=== PATIENT | female | born 1935 | race Caucasian/White ===

== ENCOUNTER 2017-06-28 14:34 | Inpatient (IN) | payer OTHER, MEDICAID ==
[~2017-06-28] VITALS: Ht 160 cm; Wt 73.9 kg
[2017-06-28 14:35] VITALS: BP_SYST 113
[2017-06-28 15:10] LABS: BASOPHILS % (AUTO) 0.2 % (0.0-2.0); EOSINOPHILS # (AUTO) 0.2 K/uL (0.0-0.4); EOSINOPHILS % (AUTO) 1.8 % (0.0-4.0); HEMATOCRIT 33.1 % (36-48); HEMOGLOBIN 10.8 g/dL (12.0-16.0); LYMPHOCYTES # (AUTO) 1.8 K/uL (1.0-5.5); LYMPHOCYTES % (AUTO) 14.9 % (20.5-51.5); MEAN CORPUSCULAR HEMOGLOBIN 29 pg (27-31); MEAN CORPUSCULAR HGB CONC 33 % (32-36); MEAN CORPUSCULAR VOLUME 89 fL (79.0-98.0); MONOCYTES # (AUTO) 1.2 K/uL (0.0-1.0); MONOCYTES % (AUTO) 9.8 % (1.7-9.3); NEUTROPHILS # (AUTO) 9.2 K/uL (1.8-7.7); NEUTROPHILS % (AUTO) 73.3 % (40.0-70.0); PLATELET COUNT (AUTO) 460 K/uL (130-430); RED BLOOD CELL COUNT(AUTO) 3.74 MIL/uL (4.2-6.2); RED CELL DISTRIBUTION WIDTH 12.5 % (9.0-15.0); WHITE BLOOD COUNT (AUTO) 12.4 K/uL (4.8-10.8)
[2017-06-28 15:15] LABS: ANION GAP 12 (5-15); CALCIUM 9.1 mg/dL (8.4-11.0); CHLORIDE 86 mmol/L (98-107); CREATININE 3.55 mg/dL (0.55-1.30); GLUCOSE 158 mg/dL (70-99); POTASSIUM 3.9 mmol/L (3.5-5.1); SODIUM SERUM 128 mmol/L (136-145)
[2017-06-28] MEDS ORDERED: DOCU250C PO (15:17)
[2017-06-28] MEDS ORDERED: MAGN400O4 PO (15:17)
[2017-06-28] MEDS ORDERED: INSU100V9 SUBCUT ×2 (15:17)
[2017-06-28] MEDS ORDERED: TRIA50CA PO (15:17)
[2017-06-28] MEDS ORDERED: METO5TAB8 PO (15:17)
[2017-06-28] MEDS ORDERED: ZOLP10TA2 PO (15:17)
[2017-06-28] MEDS ORDERED: ACET-2165 PO (15:17)
[2017-06-28] MEDS ORDERED: SITA100T7 PO (15:17)
[2017-06-28] MEDS ORDERED: INSU100V32 SUBCUT (15:17)
[2017-06-28] MEDS ORDERED: GLUC1VIA4 IJ (15:17)
[2017-06-28] MEDS ORDERED: METF750T PO (15:17)
[2017-06-28] MEDS ORDERED: OXYB10TA4 PO (15:17)
[2017-06-28] MEDS ORDERED: LACT10SO66 PO (15:17)
[2017-06-28] MEDS ORDERED: OMEP20CA10 PO (15:17)
[2017-06-28] MEDS ORDERED: METO25TA6 PO (15:17)
[2017-06-28] MEDS ORDERED: FURO-149 PO (15:17)
[2017-06-28] MEDS ORDERED: LOSA100T11 PO (15:17)
[2017-06-28] MEDS ORDERED: NA P118E RC (15:17)
[2017-06-28] MEDS ORDERED: DULR10 RC (15:17)
[2017-06-28] MEDS ORDERED: HYDR-4100 PO (15:17)
[2017-06-28] MEDS ORDERED: LIP20 PO (15:17)
[2017-06-28] MEDS ORDERED: NEU100 PO (15:17)
[2017-06-28 15:18] LABS: PROTHROMBIN TIME 10.8 SECS (9.5-12.5)
[2017-06-28 15:21] LABS: ALANINE AMINOTRANSFERASE 15 U/L (12-78); ALBUMIN 3.4 g/dL (3.4-4.8); ASPARTATE AMINOTRANSFERASE 14 U/L (10-37); TOTAL BILIRUBIN 0.3 mg/dL (0.0-1.0)
[2017-06-28 15:23] LABS: UREA NITROGEN, BLOOD 109 mg/dL (8-21)
[2017-06-28] MEDS ORDERED: NACL 0.9% 1,000 ML IV ONE (16:30)
[2017-06-28 17:26] VITALS: BP_SYST 146
[2017-06-28] MEDS ORDERED: ACETAMINOPHEN 325 MG TABLET PO PRN (17:30)
[2017-06-28] MEDS ORDERED: ONDANSETRON HCL 4 MG/2 ML VIAL IVP PRN (17:30)
[2017-06-28] MEDS ORDERED: MORPHINE 2 MG/ML INJ. SYRINGE IVP PRN (17:30)
[2017-06-28] MEDS ORDERED: BISACODYL 10 MG/SUPPOSITORY RC PRN (17:45)
[2017-06-28] MEDS ORDERED: ZOLPIDEM TARTRATE 5 MG TABLET PO PRN (17:45)
[2017-06-28] MEDS ORDERED: LORazepam 2 MG/ML VIAL IVP PRN (17:45)
[2017-06-28] MEDS ORDERED: SIMETHICONE 80 MG TAB.CHEW PO PRN (17:45)
[2017-06-28] MEDS ORDERED: POTASSIUM CHLORIDE 20 MEQ TAB.PRT.SR PO PRN (17:45)
[2017-06-28 18:38] LABS: AMYLASE 32 U/L (0-100); ANION GAP 13 (5-15); CALCIUM 9.1 mg/dL (8.4-11.0); CHLORIDE 86 mmol/L (98-107); CREATININE 3.45 mg/dL (0.55-1.30); GLUCOSE 160 mg/dL (70-99); LIPASE 97 U/L (73-393); PHOSPHORUS 4.1 mg/dL (2.7-4.5); POTASSIUM 3.9 mmol/L (3.5-5.1); SODIUM SERUM 125 mmol/L (136-145); UREA NITROGEN, BLOOD 98 mg/dL (8-21)
[2017-06-28] MEDS ORDERED: DOCUSATE SODIUM 100 MG CAPSULE PO SCH (21:00)
[2017-06-28] MEDS: GABAPENTIN 100 MG CAPSULE PO SCH (22:47)
[2017-06-28] MEDS: METOPROLOL TARTRATE 25 MG TABLET PO SCH (22:48)
[2017-06-28] MEDS: LACTULOSE 20 GM/30 ML UDC PO SCH (22:50)
[2017-06-28] MEDS: INSULIN REGULAR, HUMAN 100 UNITS/ML, 10 ML VIAL (novoLIN R) SUBCUT PRN (22:53)
[2017-06-29 00:45] VITALS: BP_SYST 122
[2017-06-29 01:08] LABS: BILIRUBIN,URINE NEGATIVE (NEGATIVE); BLOOD, URINE 1+ (NEGATIVE); CLARITY/URINE CLOUDY (CLEAR); COLOR,URINE YELLOW (YELLOW); GLUCOSE,URINE NEGATIVE (NEGATIVE); KETONES,URINE NEGATIVE (NEGATIVE); LEUKOCYTE ESTERASE ,URINE 2+ (NEGATIVE); NITRITE, URINE NEGATIVE (NEGATIVE); PH,URINE 6.5 (5.0-8.0); PROTEIN URINE NEGATIVE (NEGATIVE); UROBILINOGEN,URINE 0.2 (0.2-1.0)
[2017-06-29 01:13] LABS: BACTERIA,URINE MANY /HPF (None Seen); WBC,URINE 50-80 /HPF (0-3)
[2017-06-29 01:14] LABS: MUCUS,URINE None Seen /LPF (None Seen); URINE AMORPHOUS URATE 1+ /HPF (None Seen)
[2017-06-29 04:12] VITALS: BP_SYST 141
[2017-06-29 08:37] LABS: T4 (THYROXINE) 10.8 ug/dL (4.5-12.0)
[2017-06-29 08:47] LABS: CHOLESTEROL 79 mg/dL (<200); HDL CHOLESTEROL 35 mg/dL (>55); LDL CHOLESTEROL 35 mg/dL (<100); TRIGLYCERIDES 117 mg/dL (30-150)
[2017-06-29] MEDS ORDERED: LOSARTAN POTASSIUM 50 MG TABLET (COZAAR) PO SCH (09:00)
[2017-06-29] MEDS ORDERED: LORazepam 2 MG/ML VIAL IVP PRN (09:15)
[2017-06-29] MEDS ORDERED: ZOLPIDEM TARTRATE 5 MG TABLET PO PRN (09:15)
[2017-06-29] MEDS ORDERED: POTASSIUM CHLORIDE 10 MEQ TAB.PRT.SR PO PRN (09:15)
[2017-06-29] MEDS ORDERED: ACETAMINOPHEN 325 MG TABLET PO PRN (09:15)
[2017-06-29] MEDS ORDERED: MAGNESIUM SULFATE 50 ML IV PRN (09:15)
[2017-06-29] MEDS ORDERED: ONDANSETRON HCL 4 MG/2 ML VIAL IVP PRN (09:15)
[2017-06-29] MEDS ORDERED: MORPHINE 2 MG/ML INJ. SYRINGE IVP PRN (09:15)
[2017-06-29] MEDS ORDERED: DOCUSATE SODIUM 100 MG CAPSULE PO PRN (09:15)
[2017-06-29] MEDS: ATORVASTATIN 20 MG TABLET PO SCH (09:36)
[2017-06-29] MEDS: LACTULOSE 20 GM/30 ML UDC PO SCH ×2 (09:36→20:18)
[2017-06-29] MEDS: OXYBUTYNIN CHLORIDE 5 MG TABLET PO SCH ×2 (09:37→20:19)
[2017-06-29] MEDS: OMEPRAZOLE 20 MG CAPSULE.DR (PriLOSEC) PO SCH (09:37)
[2017-06-29] MEDS: METOLAZONE 5 MG TABLET PO SCH (09:37)
[2017-06-29] MEDS: GABAPENTIN 100 MG CAPSULE PO SCH ×2 (09:37→20:18)
[2017-06-29] MEDS: METOPROLOL TARTRATE 25 MG TABLET PO SCH ×2 (09:38→20:19)
[2017-06-29 09:44] VITALS: BP_SYST 157
[2017-06-29] MEDS: cefTRIAXone 1 GM in D5W 50 ML IV SCH (09:52)
[2017-06-29 11:32] VITALS: BP_SYST 148
[2017-06-29] MEDS: INSULIN REGULAR, HUMAN 100 UNITS/ML, 10 ML VIAL (novoLIN R) SUBCUT PRN ×2 (11:57→20:29)
[2017-06-29 15:24] LABS: HEMOGLOBIN A1C 8.4 % (4.8-5.6)
[2017-06-29 15:47] VITALS: BP_SYST 126
[2017-06-29] MEDS: NACL 0.9% 1,000 ML IV SCH ×2 (15:47→22:24)
[2017-06-29 20:00] VITALS: BP_SYST 165
[2017-06-30 00:54] VITALS: BP_SYST 141
[2017-06-30] MEDS: HYDROcodone/ACETAMIN 10-325 MG TAB PO PRN (01:49)
[2017-06-30 04:40] VITALS: BP_SYST 119
[2017-06-30 07:35] VITALS: BP_SYST 141
[2017-06-30 07:36] LABS: BASOPHILS % (AUTO) 0.4 % (0.0-2.0); EOSINOPHILS # (AUTO) 0.3 K/uL (0.0-0.4); EOSINOPHILS % (AUTO) 2.7 % (0.0-4.0); HEMATOCRIT 31.7 % (36-48); HEMOGLOBIN 10.6 g/dL (12.0-16.0); LYMPHOCYTES # (AUTO) 1.6 K/uL (1.0-5.5); LYMPHOCYTES % (AUTO) 14.8 % (20.5-51.5); MEAN CORPUSCULAR HEMOGLOBIN 30 pg (27-31); MEAN CORPUSCULAR HGB CONC 34 % (32-36); MEAN CORPUSCULAR VOLUME 90 fL (79.0-98.0); MONOCYTES % (AUTO) 9.8 % (1.7-9.3); NEUTROPHILS # (AUTO) 7.6 K/uL (1.8-7.7); NEUTROPHILS % (AUTO) 72.3 % (40.0-70.0); PLATELET COUNT (AUTO) 445 K/uL (130-430); RED BLOOD CELL COUNT(AUTO) 3.52 MIL/uL (4.2-6.2); RED CELL DISTRIBUTION WIDTH 12.6 % (9.0-15.0); WHITE BLOOD COUNT (AUTO) 10.5 K/uL (4.8-10.8)
[2017-06-30 07:42] LABS: ANION GAP 12 (5-15); CALCIUM 9.1 mg/dL (8.4-11.0); CHLORIDE 96 mmol/L (98-107); GLUCOSE 87 mg/dL (70-99); POTASSIUM 3.3 mmol/L (3.5-5.1); SODIUM SERUM 133 mmol/L (136-145); UREA NITROGEN, BLOOD 68 mg/dL (8-21)
[2017-06-30] MEDS: ATORVASTATIN 20 MG TABLET PO SCH (08:56)
[2017-06-30] MEDS: cefTRIAXone 1 GM in D5W 50 ML IV SCH (08:56)
[2017-06-30] MEDS: OMEPRAZOLE 20 MG CAPSULE.DR (PriLOSEC) PO SCH (08:56)
[2017-06-30] MEDS: OXYBUTYNIN CHLORIDE 5 MG TABLET PO SCH ×2 (08:56→21:48)
[2017-06-30] MEDS: LACTULOSE 20 GM/30 ML UDC PO SCH ×2 (08:56→21:23)
[2017-06-30] MEDS: GABAPENTIN 100 MG CAPSULE PO SCH ×2 (08:56→21:23)
[2017-06-30] MEDS: METOLAZONE 5 MG TABLET PO SCH (08:57)
[2017-06-30] MEDS: METOPROLOL TARTRATE 25 MG TABLET PO SCH ×2 (08:58→21:25)
[2017-06-30 11:55] VITALS: BP_SYST 118
[2017-06-30] MEDS: INSULIN REGULAR, HUMAN 100 UNITS/ML, 10 ML VIAL (novoLIN R) SUBCUT PRN ×2 (12:00→21:29)
[2017-06-30] MEDS: NACL 0.9% 1,000 ML IV SCH (12:14)
[2017-06-30 16:03] VITALS: BP_SYST 144
[2017-06-30] MEDS: MUPIROCIN 2% TOPICAL OINTMENT 22 GM NS SCH ×2 (17:24→21:30)
[2017-06-30] MEDS ORDERED: POTASSIUM CHLORIDE 20 MEQ/PKT PACKET PO ONE (18:15)
[2017-06-30 23:30] VITALS: BP_SYST 147
[2017-07-01 03:30] VITALS: BP_SYST 157
[2017-07-01] MEDS: NACL 0.9% 1,000 ML IV SCH ×3 (03:48→19:25)
[2017-07-01] MEDS: INSULIN REGULAR, HUMAN 100 UNITS/ML, 10 ML VIAL (novoLIN R) SUBCUT PRN ×3 (05:53→20:46)
[2017-07-01 07:26] LABS: BASOPHILS % (AUTO) 0.4 % (0.0-2.0); EOSINOPHILS # (AUTO) 0.4 K/uL (0.0-0.4); EOSINOPHILS % (AUTO) 3.8 % (0.0-4.0); HEMATOCRIT 33.2 % (36-48); HEMOGLOBIN 11.1 g/dL (12.0-16.0); LYMPHOCYTES # (AUTO) 1.8 K/uL (1.0-5.5); LYMPHOCYTES % (AUTO) 15.7 % (20.5-51.5); MEAN CORPUSCULAR HEMOGLOBIN 30 pg (27-31); MEAN CORPUSCULAR HGB CONC 33 % (32-36); MEAN CORPUSCULAR VOLUME 90 fL (79.0-98.0); MONOCYTES # (AUTO) 1.1 K/uL (0.0-1.0); MONOCYTES % (AUTO) 9.2 % (1.7-9.3); NEUTROPHILS # (AUTO) 8.2 K/uL (1.8-7.7); NEUTROPHILS % (AUTO) 70.9 % (40.0-70.0); PLATELET COUNT (AUTO) 446 K/uL (130-430); RED BLOOD CELL COUNT(AUTO) 3.71 MIL/uL (4.2-6.2); RED CELL DISTRIBUTION WIDTH 12.6 % (9.0-15.0); WHITE BLOOD COUNT (AUTO) 11.5 K/uL (4.8-10.8)
[2017-07-01 07:30] VITALS: BP_SYST 171
[2017-07-01 07:48] LABS: ANION GAP 12 (5-15); CALCIUM 9.1 mg/dL (8.4-11.0); CHLORIDE 100 mmol/L (98-107); CREATININE 1.85 mg/dL (0.55-1.30); GLUCOSE 183 mg/dL (70-99); POTASSIUM 4.4 mmol/L (3.5-5.1); SODIUM SERUM 135 mmol/L (136-145); UREA NITROGEN, BLOOD 51 mg/dL (8-21)
[2017-07-01] MEDS: HYDROcodone/ACETAMIN 10-325 MG TAB PO PRN ×2 (09:19→16:04)
[2017-07-01] MEDS: OMEPRAZOLE 20 MG CAPSULE.DR (PriLOSEC) PO SCH (09:20)
[2017-07-01] MEDS: GABAPENTIN 100 MG CAPSULE PO SCH ×2 (09:21→20:31)
[2017-07-01] MEDS: OXYBUTYNIN CHLORIDE 5 MG TABLET PO SCH ×2 (09:22→20:33)
[2017-07-01] MEDS: METOPROLOL TARTRATE 25 MG TABLET PO SCH ×2 (09:22→20:33)
[2017-07-01] MEDS: ATORVASTATIN 20 MG TABLET PO SCH (09:23)
[2017-07-01] MEDS: LACTULOSE 20 GM/30 ML UDC PO SCH ×2 (09:24→20:34)
[2017-07-01] MEDS: MUPIROCIN 2% TOPICAL OINTMENT 22 GM NS SCH ×2 (09:25→20:31)
[2017-07-01] MEDS: cefTRIAXone 1 GM in D5W 50 ML IV SCH (09:25)
[2017-07-01] MEDS: METOLAZONE 5 MG TABLET PO SCH (09:27)
[2017-07-01 12:15] VITALS: BP_SYST 147
[2017-07-01 16:50] VITALS: BP_SYST 158
[2017-07-01 20:20] VITALS: BP_SYST 120
[2017-07-01 23:44] VITALS: BP_SYST 150
[2017-07-02] VITALS (7 sets, daily range): BP systolic 154–178
[2017-07-02] MEDS: HYDROcodone/ACETAMIN 10-325 MG TAB PO PRN ×2 (02:55→23:28)
[2017-07-02 07:19] LABS: BASOPHILS # (AUTO) 0.1 K/uL (0.0-0.2); BASOPHILS % (AUTO) 0.5 % (0.0-2.0); EOSINOPHILS # (AUTO) 0.4 K/uL (0.0-0.4); EOSINOPHILS % (AUTO) 3.7 % (0.0-4.0); HEMATOCRIT 29.7 % (36-48); LYMPHOCYTES # (AUTO) 1.8 K/uL (1.0-5.5); MEAN CORPUSCULAR HEMOGLOBIN 30 pg (27-31); MEAN CORPUSCULAR HGB CONC 34 % (32-36); MEAN CORPUSCULAR VOLUME 90 fL (79.0-98.0); MONOCYTES % (AUTO) 8.8 % (1.7-9.3); NEUTROPHILS # (AUTO) 7.7 K/uL (1.8-7.7); PLATELET COUNT (AUTO) 399 K/uL (130-430); RED BLOOD CELL COUNT(AUTO) 3.31 MIL/uL (4.2-6.2); RED CELL DISTRIBUTION WIDTH 12.2 % (9.0-15.0)
[2017-07-02 07:25] LABS: ANION GAP 10 (5-15); CALCIUM 9.1 mg/dL (8.4-11.0); CHLORIDE 104 mmol/L (98-107); CREATININE 1.49 mg/dL (0.55-1.30); GLUCOSE 96 mg/dL (70-99); SODIUM SERUM 137 mmol/L (136-145); UREA NITROGEN, BLOOD 34 mg/dL (8-21)
[2017-07-02] MEDS: NACL 0.9% 1,000 ML IV SCH (07:28)
[2017-07-02] MEDS: cefTRIAXone 1 GM in D5W 50 ML IV SCH (08:39)
[2017-07-02] MEDS: MUPIROCIN 2% TOPICAL OINTMENT 22 GM NS SCH ×3 (08:40→22:16)
[2017-07-02] MEDS: OMEPRAZOLE 20 MG CAPSULE.DR (PriLOSEC) PO SCH (08:41)
[2017-07-02] MEDS: GABAPENTIN 100 MG CAPSULE PO SCH ×3 (08:41→22:18)
[2017-07-02] MEDS: OXYBUTYNIN CHLORIDE 5 MG TABLET PO SCH ×2 (08:41→22:16)
[2017-07-02] MEDS: ATORVASTATIN 20 MG TABLET PO SCH (08:41)
[2017-07-02] MEDS: METOLAZONE 5 MG TABLET PO SCH (08:42)
[2017-07-02] MEDS: METOPROLOL TARTRATE 25 MG TABLET PO SCH ×3 (08:42→22:24)
[2017-07-02] MEDS: LACTULOSE 20 GM/30 ML UDC PO SCH ×3 (08:45→22:17)
[2017-07-02] MEDS: INSULIN REGULAR, HUMAN 100 UNITS/ML, 10 ML VIAL (novoLIN R) SUBCUT PRN ×2 (11:35→16:44)
[2017-07-03] MEDS: NACL 0.9% 1,000 ML IV SCH ×2 (01:24→11:45)
[2017-07-03] MEDS: INSULIN REGULAR, HUMAN 100 UNITS/ML, 10 ML VIAL (novoLIN R) SUBCUT PRN ×4 (06:32→20:53)
[2017-07-03 07:11] LABS: BASOPHILS % (AUTO) 0.2 % (0.0-2.0); EOSINOPHILS # (AUTO) 0.4 K/uL (0.0-0.4); HEMATOCRIT 31.8 % (36-48); HEMOGLOBIN 10.3 g/dL (12.0-16.0); LYMPHOCYTES % (AUTO) 16.5 % (20.5-51.5); MEAN CORPUSCULAR HEMOGLOBIN 29 pg (27-31); MEAN CORPUSCULAR HGB CONC 33 % (32-36); MEAN CORPUSCULAR VOLUME 91 fL (79.0-98.0); MONOCYTES % (AUTO) 8.3 % (1.7-9.3); NEUTROPHILS # (AUTO) 8.6 K/uL (1.8-7.7); PLATELET COUNT (AUTO) 408 K/uL (130-430); RED BLOOD CELL COUNT(AUTO) 3.51 MIL/uL (4.2-6.2); RED CELL DISTRIBUTION WIDTH 12.5 % (9.0-15.0); WHITE BLOOD COUNT (AUTO) 12.1 K/uL (4.8-10.8)
[2017-07-03 07:32] LABS: ANION GAP 9 (5-15); CHLORIDE 101 mmol/L (98-107); CREATININE 1.38 mg/dL (0.55-1.30); GLUCOSE 174 mg/dL (70-99); POTASSIUM 3.7 mmol/L (3.5-5.1); SODIUM SERUM 135 mmol/L (136-145); UREA NITROGEN, BLOOD 24 mg/dL (8-21)
[2017-07-03] MEDS: LACTULOSE 20 GM/30 ML UDC PO SCH ×3 (09:00→20:48)
[2017-07-03] MEDS: cefTRIAXone 1 GM in D5W 50 ML IV SCH (09:12)
[2017-07-03] MEDS: MUPIROCIN 2% TOPICAL OINTMENT 22 GM NS SCH ×2 (09:12→20:51)
[2017-07-03] MEDS: OXYBUTYNIN CHLORIDE 5 MG TABLET PO SCH ×2 (09:13→20:48)
[2017-07-03] MEDS: ATORVASTATIN 20 MG TABLET PO SCH (09:23)
[2017-07-03] MEDS: GABAPENTIN 100 MG CAPSULE PO SCH ×2 (09:23→20:49)
[2017-07-03] MEDS: OMEPRAZOLE 20 MG CAPSULE.DR (PriLOSEC) PO SCH (09:23)
[2017-07-03] MEDS: METOPROLOL TARTRATE 25 MG TABLET PO SCH ×2 (09:23→20:51)
[2017-07-03] MEDS: HYDROcodone/ACETAMIN 10-325 MG TAB PO PRN ×2 (09:24→20:50)
[2017-07-03 11:38] VITALS: BP_SYST 157
[2017-07-03 16:11] VITALS: BP_SYST 162
[2017-07-03 19:31] VITALS: BP_SYST 182
[2017-07-04] MEDS: NACL 0.9% 1,000 ML IV SCH ×2 (00:20→17:08)
[2017-07-04] MEDS: cloNIDine HCL 0.1 MG TABLET PO PRN ×2 (00:25→17:17)
[2017-07-04 01:59] VITALS: BP_SYST 179
[2017-07-04 04:00] VITALS: BP_SYST 148
[2017-07-04 06:49] LABS: BASOPHILS % (AUTO) 0.4 % (0.0-2.0); EOSINOPHILS # (AUTO) 0.4 K/uL (0.0-0.4); EOSINOPHILS % (AUTO) 4.1 % (0.0-4.0); HEMATOCRIT 28.6 % (36-48); HEMOGLOBIN 9.3 g/dL (12.0-16.0); LYMPHOCYTES # (AUTO) 1.8 K/uL (1.0-5.5); LYMPHOCYTES % (AUTO) 20.1 % (20.5-51.5); MEAN CORPUSCULAR HEMOGLOBIN 29 pg (27-31); MEAN CORPUSCULAR HGB CONC 33 % (32-36); MEAN CORPUSCULAR VOLUME 90 fL (79.0-98.0); MONOCYTES # (AUTO) 0.9 K/uL (0.0-1.0); MONOCYTES % (AUTO) 10.3 % (1.7-9.3); NEUTROPHILS % (AUTO) 65.1 % (40.0-70.0); PLATELET COUNT (AUTO) 359 K/uL (130-430); RED BLOOD CELL COUNT(AUTO) 3.18 MIL/uL (4.2-6.2); RED CELL DISTRIBUTION WIDTH 12.4 % (9.0-15.0); WHITE BLOOD COUNT (AUTO) 9.1 K/uL (4.8-10.8)
[2017-07-04 06:55] LABS: ANION GAP 7 (5-15); CALCIUM 8.5 mg/dL (8.4-11.0); CHLORIDE 106 mmol/L (98-107); CREATININE 1.29 mg/dL (0.55-1.30); GLUCOSE 124 mg/dL (70-99); POTASSIUM 3.8 mmol/L (3.5-5.1); SODIUM SERUM 136 mmol/L (136-145); UREA NITROGEN, BLOOD 20 mg/dL (8-21)
[2017-07-04 08:07] VITALS: BP_SYST 155
[2017-07-04] MEDS: LACTULOSE 20 GM/30 ML UDC PO SCH ×3 (09:00→22:34)
[2017-07-04] MEDS: OXYBUTYNIN CHLORIDE 5 MG TABLET PO SCH ×2 (09:26→22:35)
[2017-07-04] MEDS: OMEPRAZOLE 20 MG CAPSULE.DR (PriLOSEC) PO SCH (09:26)
[2017-07-04] MEDS: GABAPENTIN 100 MG CAPSULE PO SCH ×2 (09:26→22:34)
[2017-07-04] MEDS: cefTRIAXone 1 GM in D5W 50 ML IV SCH (09:26)
[2017-07-04] MEDS: METOPROLOL TARTRATE 25 MG TABLET PO SCH ×2 (09:27→22:35)
[2017-07-04] MEDS: ATORVASTATIN 20 MG TABLET PO SCH (09:27)
[2017-07-04] MEDS: MUPIROCIN 2% TOPICAL OINTMENT 22 GM NS SCH ×2 (09:27→22:34)
[2017-07-04] MEDS: INSULIN REGULAR, HUMAN 100 UNITS/ML, 10 ML VIAL (novoLIN R) SUBCUT PRN (11:19)
[2017-07-04 12:16] VITALS: BP_SYST 155
[2017-07-04 16:16] VITALS: BP_SYST 167
[2017-07-04 19:35] VITALS: BP_SYST 151
[2017-07-05] VITALS (7 sets, daily range): BP systolic 118–197
[2017-07-05] MEDS: cloNIDine HCL 0.1 MG TABLET PO PRN ×3 (04:12→16:37)
[2017-07-05] MEDS: NACL 0.9% 1,000 ML IV SCH (07:12)
[2017-07-05] MEDS: cefTRIAXone 1 GM in D5W 50 ML IV SCH (08:21)
[2017-07-05] MEDS: OXYBUTYNIN CHLORIDE 5 MG TABLET PO SCH ×2 (08:21→21:37)
[2017-07-05] MEDS: ATORVASTATIN 20 MG TABLET PO SCH (08:21)
[2017-07-05] MEDS: LACTULOSE 20 GM/30 ML UDC PO SCH ×2 (08:21→21:36)
[2017-07-05] MEDS: METOPROLOL TARTRATE 25 MG TABLET PO SCH ×2 (08:21→21:00)
[2017-07-05] MEDS: MUPIROCIN 2% TOPICAL OINTMENT 22 GM NS SCH ×2 (08:22→21:56)
[2017-07-05] MEDS: GABAPENTIN 100 MG CAPSULE PO SCH ×2 (08:22→21:37)
[2017-07-05] MEDS: OMEPRAZOLE 20 MG CAPSULE.DR (PriLOSEC) PO SCH (08:22)
[2017-07-05] MEDS: MORPHINE 2 MG/ML INJ. SYRINGE IVP PRN ×3 (08:25→21:44)
[2017-07-05] MEDS ORDERED: HYDROCHLOROTHIAZIDE 25 MG TABLET (HCTZ) PO ONE ×2 (09:45→12:30)
[2017-07-05] MEDS: INSULIN REGULAR, HUMAN 100 UNITS/ML, 10 ML VIAL (novoLIN R) SUBCUT PRN ×2 (11:48→21:55)
[2017-07-06] VITALS: BP_SYST 109
[2017-07-06] MEDS: NACL 0.9% 1,000 ML IV SCH (00:59)
[2017-07-06 04:47] VITALS: BP_SYST 120
[2017-07-06 08:06] VITALS: BP_SYST 162
[2017-07-06] MEDS: LACTULOSE 20 GM/30 ML UDC PO SCH ×2 (08:40→20:16)
[2017-07-06] MEDS: OMEPRAZOLE 20 MG CAPSULE.DR (PriLOSEC) PO SCH (08:40)
[2017-07-06] MEDS: MUPIROCIN 2% TOPICAL OINTMENT 22 GM NS SCH ×2 (08:40→20:18)
[2017-07-06] MEDS: OXYBUTYNIN CHLORIDE 5 MG TABLET PO SCH ×2 (08:40→20:18)
[2017-07-06] MEDS: METOPROLOL TARTRATE 25 MG TABLET PO SCH ×2 (08:41→20:17)
[2017-07-06] MEDS: GABAPENTIN 100 MG CAPSULE PO SCH ×2 (08:41→20:16)
[2017-07-06] MEDS: ATORVASTATIN 20 MG TABLET PO SCH (08:41)
[2017-07-06] MEDS ORDERED: HYDROCHLOROTHIAZIDE 25 MG TABLET (HCTZ) PO SCH ×2 (09:00)
[2017-07-06] MEDS ORDERED: D5NS 1,000 ML IV SCH (09:30)
[2017-07-06 12:00] VITALS: BP_SYST 113
[2017-07-06 16:00] VITALS: BP_SYST 196
[2017-07-06] MEDS: cloNIDine HCL 0.1 MG TABLET PO PRN (16:35)
[2017-07-06 18:25] VITALS: BP_SYST 160
[2017-07-06] MEDS: INSULIN REGULAR, HUMAN 100 UNITS/ML, 10 ML VIAL (novoLIN R) SUBCUT PRN (20:24)
== END 2017-07-06 21:06 | DRG 871 ==
LOC: SED 14:34 → STU 16:20 → SMU 07-02 11:07
PROVIDERS: ADMIT Family Medicine; ATTEND Family Medicine
DX: A41.9 Sepsis, unspecified organism (principal); G93.41 Metabolic encephalopathy; N17.0 Acute kidney failure with tubular necrosis; N39.0 Urinary tract infection, site not specified; E87.1 Hypo-osmolality and hyponatremia; E11.65 Type 2 diabetes mellitus with hyperglycemia; I10 Essential (primary) hypertension; D63.8 Anemia in other chronic diseases classified elsewhere; G30.9 Alzheimer's disease, unspecified; E11.21 Type 2 diabetes mellitus with diabetic nephropathy; F02.80 Dementia in other diseases classified elsewhere, unspecified severity, without behavioral disturbance, psychotic disturbance, mood disturbance, and anxiety; B95.62 Methicillin resistant Staphylococcus aureus infection as the cause of diseases classified elsewhere; E87.6 Hypokalemia
CPT/HCPCS: 36415; 70450-TC; 71010; 76770; 80048; 80053; 80061; 81000-TC; 82150-TC; 82962; 83036; 83690-TC; 83735-TC; 83880; 84100-TC; 84436; 84439; 84443-TC; 84479; 84484; 85025; 85610-TC; 85730-TC; 87081; 87086; 93005; 97110-GP; 97530-GP; 99285; J0696; J1815; J2270; J7030; J7042; J7060